=== PATIENT | male | born 1945 | race Caucasian/White ===

== ENCOUNTER 2021-09-07 08:40 | Day surgery (SDC) | payer MEDICARE, OTHER ==
[2021-09-07] MEDS ORDERED: fentaNYL 100 MCG/2 ML SDV IV ONE (08:41)
[2021-09-07] MEDS ORDERED: Midazolam 1 MG/ML 2 ML SDV IV ONE (08:41)
[2021-09-07] MEDS ORDERED: Lactated Ringers 1,000 ML IV PRN (09:00)
[2021-09-07] MEDS: Sodium Chloride 0.9% 10 ML Syringe FLUSH PRN (09:44)
[2021-09-07] MEDS: acetaZOLAMIDE 500 MG Cap.ER PO ONE (11:20)
== END 2021-09-07 11:15 | disposition home or self-care (01) ==
LOC: FB.SDS 08:40
PROVIDERS: ATTEND Ophthalmology
DX: H25.12 Age-related nuclear cataract, left eye (principal); I47.1 Supraventricular tachycardia; E78.5 Hyperlipidemia, unspecified; Z88.8 Allergy status to other drugs, medicaments and biological substances; Z79.82 Long term (current) use of aspirin; Z79.899 Other long term (current) drug therapy
CPT/HCPCS: 00142-QZ; A9270-GY; J2250; J3010; J3490; V2632

== ENCOUNTER 2021-09-21 07:38 | Day surgery (SDC) | payer MEDICARE, OTHER ==
[2021-09-21] MEDS ORDERED: fentaNYL 100 MCG/2 ML SDV IV ONE (07:39)
[2021-09-21] MEDS ORDERED: Sodium Chloride 0.9% 10 ML Syringe IV ONE (07:39)
[2021-09-21] MEDS ORDERED: Midazolam 1 MG/ML 2 ML SDV IV ONE (07:39)
[2021-09-21] MEDS ORDERED: Lactated Ringers 1,000 ML IV PRN (08:00)
[2021-09-21] MEDS ORDERED: Sodium Chloride 0.9% 10 ML Syringe FLUSH PRN (08:00)
[2021-09-21] MEDS ORDERED: acetaZOLAMIDE 500 MG Cap.ER PO ONE (10:30)
== END 2021-09-21 11:05 | disposition home or self-care (01) ==
LOC: FB.SDS 07:38
PROVIDERS: ATTEND Ophthalmology
DX: H25.9 Unspecified age-related cataract (principal); I47.1 Supraventricular tachycardia; E78.5 Hyperlipidemia, unspecified; Z91.048 Other nonmedicinal substance allergy status; Z79.82 Long term (current) use of aspirin; Z79.899 Other long term (current) drug therapy
CPT/HCPCS: 00142-QZ; A9270-GY; J2250; J3010; J3490; V2632